=== PATIENT | female | born 1965 | race Two or more races ===

== ENCOUNTER 2022-02-25 11:24 | Emergency (ER) | payer MEDICAID ==
[~2022-02-25] VITALS: Ht 149.9 cm; Wt 52.0 kg
[2022-02-25 14:11] VITALS: BP 104/70
== END 2022-02-25 15:00 | disposition left against medical advice (07) ==
LOC: EDBD 11:24 → ER 11:29
DX: R55 Syncope and collapse (principal); R42 Dizziness and giddiness; Z53.21 Procedure and treatment not carried out due to patient leaving prior to being seen by health care provider
CPT/HCPCS: 93005